=== PATIENT | female | born 1955 | race Caucasian/White ===

== ENCOUNTER 2017-04-05 08:47 | Day surgery (SDC) | payer OTHER ==
[~2017-04-05] VITALS: Ht 154.9 cm; Wt 77.6 kg
[2017-04-05 09:16] VITALS: BP 121/78
[2017-04-05 11:48] VITALS: BP 128/77
== END 2017-04-05 11:55 | disposition home or self-care (01) ==
LOC: GI 08:47 → DS 08:47 → OR 09:30 → DS 11:55 → OR 04-06 08:30
PROVIDERS: Internal Medicine Gastroenterology
PROC: 0DB68ZX Excision of Stomach, Via Natural or Artificial Opening Endoscopic, Diagnostic (ICD-10-PCS; principal; 2017-04-05 09:30)
DX: R10.13 Epigastric pain (principal); M32.9 Systemic lupus erythematosus, unspecified; E66.9 Obesity, unspecified; Z68.32 Body mass index [BMI] 32.0-32.9, adult; Z79.52 Long term (current) use of systemic steroids; Z85.3 Personal history of malignant neoplasm of breast; Z90.13 Acquired absence of bilateral breasts and nipples
CPT/HCPCS: 43235; J1200; J1610; J2250; J2310; J3010; J3490

== ENCOUNTER 2020-02-24 14:44 | Inpatient (IN) | payer OTHER ==
[~2020-02-24] VITALS: Ht 152.4 cm; Wt 66.9 kg
[2020-02-24] MEDS ORDERED: ZYLOPRIM300 MG PO (16:11)
[2020-02-24] MEDS ORDERED: ATORVASTATIN CA20 M1 PO (16:12)
[2020-02-24] MEDS ORDERED: CARVEDILOL6.25 M1 PO (16:12)
[2020-02-24] MEDS ORDERED: ARIMIDEX1 MG PO (16:12)
[2020-02-24] MEDS ORDERED: B-121000 MC2 PO (16:13)
[2020-02-24] MEDS ORDERED: D3 20002000 IU PO (16:13)
[2020-02-24] MEDS ORDERED: PLAQUENIL200 MG PO (16:14)
[2020-02-24] MEDS ORDERED: LASIX40 MG PO (16:14)
[2020-02-24] MEDS ORDERED: SLOW FE142 MG PO (16:14)
[2020-02-24] MEDS ORDERED: CALCIUM + D3 E1 EACH PO (16:15)
[2020-02-24] MEDS ORDERED: COZAAR100 MG PO (16:15)
[2020-02-24] MEDS ORDERED: ACID REDUCER20 MG PO (16:15)
[2020-02-24] MEDS ORDERED: DELTASONE20 MG PO (16:16)
[2020-02-24] MEDS ORDERED: ALDACTONE25 MG PO (16:16)
[2020-02-24] MEDS ORDERED: K-PHOS NEUTRAL1 TAB PO (16:16)
[2020-02-24 17:29] LABS: RED CELL DISTRIBUTION WIDTH 21.3 % (11.5-14.5)
[2020-02-24 17:30] LABS: BILIRUBIN TOTAL 0.4 mg/dL (0.20-1.00); C REACTIVE PROTEIN 0.8 mg/dL (<=0.9); CALCIUM 8.3 mg/dL (8.5-10.1); PLATELET COUNT 560 x10^3mcL (130-400); POTASSIUM SERUM 3.8 mmol/L (3.5-5.1)
[2020-02-24 17:34] LABS: ALBUMIN 1.9 g/dL (3.4-5.0); CREATININE SERUM 5.3 mg/dL (0.6-1.0); TOTAL PROTEIN, SERUM 5.8 g/dL (6.4-8.2)
[2020-02-24 17:52] LABS: BAND NEUTROPHIL 0 % (0-10); BASOPHIL 0 % (0-2); MONOCYTE 11 % (0-7); SEGMENTED NEUTROPHILS 74 % (37-75)
[2020-02-24 17:53] LABS: ovalocyte/elliptocyte 1+; rbc morphology (normal/abnorm) ABNORMAL (NORMAL); tear drop cell (dacryocyte) 1+
[2020-02-24 23:51] VITALS: BP 167/110
[2020-02-25] VITALS (7 sets, daily range): BP systolic 121–169; BP diastolic 61–119; Ht 152.4 cm; Wt 66.9 kg
[2020-02-25 07:07] LABS: PLATELET COUNT 423 x10^3mcL (130-400); RED CELL DISTRIBUTION WIDTH 21.3 % (11.5-14.5)
[2020-02-25 07:36] LABS: BILIRUBIN TOTAL 0.28 mg/dL (0.20-1.00); CALCIUM 8.4 mg/dL (8.5-10.1); CARBON DIOXIDE 27.5 mmol/L (21-32)
[2020-02-25 07:42] LABS: ALBUMIN 1.7 g/dL (3.4-5.0); CREATININE SERUM 4.2 mg/dL (0.6-1.0); TOTAL PROTEIN, SERUM 5.6 g/dL (6.4-8.2)
[2020-02-25 13:10] LABS: BAND NEUTROPHIL 1 % (0-10); MONOCYTE 10 % (0-7); SEGMENTED NEUTROPHILS 80 % (37-75)
[2020-02-25 13:11] LABS: ovalocyte/elliptocyte 1+; rbc morphology (normal/abnorm) ABNORMAL (NORMAL)
[2020-02-26 01:22] VITALS: BP 132/84
[2020-02-26 06:26] VITALS: BP 132/85
[2020-02-26 08:20] VITALS: BP 125/89
[2020-02-26 10:37] LABS: PLATELET COUNT 401 x10^3mcL (130-400); RED CELL DISTRIBUTION WIDTH 21.1 % (11.5-14.5)
[2020-02-26 10:51] LABS: CALCIUM 8.1 mg/dL (8.5-10.1); CARBON DIOXIDE 25.9 mmol/L (21-32); MAGNESIUM 1.9 mg/dL (1.8-2.4); POTASSIUM SERUM 4.4 mmol/L (3.5-5.1)
[2020-02-26 10:58] LABS: CREATININE SERUM 5.8 mg/dL (0.6-1.0)
[2020-02-26 11:19] VITALS: BP 111/47
[2020-02-26 11:28] LABS: BAND NEUTROPHIL 0 % (0-10); MONOCYTE 11 % (0-7); SEGMENTED NEUTROPHILS 81 % (37-75); rbc morphology (normal/abnorm) ABNORMAL (NORMAL)
[2020-02-26 18:17] VITALS: BP 148/93
[2020-02-26 21:36] VITALS: BP 134/88
[2020-02-27 05:30] VITALS: BP 139/91
[2020-02-27 06:41] LABS: MAGNESIUM 1.7 mg/dL (1.8-2.4); POTASSIUM SERUM 3.9 mmol/L (3.5-5.1)
[2020-02-27 07:37] LABS: PLATELET COUNT 339 x10^3mcL (130-400)
[2020-02-27 07:38] LABS: RED CELL DISTRIBUTION WIDTH 21.1 % (11.5-14.5)
[2020-02-27 08:20] VITALS: BP 160/105
[2020-02-27 12:34] VITALS: BP 124/93
[2020-02-27 12:59] LABS: MONOCYTE 10 % (0-7); SEGMENTED NEUTROPHILS 82 % (37-75); rbc morphology (normal/abnorm) ABNORMAL (NORMAL)
[2020-02-27 13:00] LABS: PLATELET MORPHOLOGY PLATELETS NORMAL; burr cell (echinocyte) 1+; ovalocyte/elliptocyte 1+; tear drop cell (dacryocyte) 1+
[2020-02-27 17:45] VITALS: BP 152/96
[2020-02-27 19:20] VITALS: BP 164/104
[2020-02-27 23:18] VITALS: BP 155/100
[2020-02-28 01:37] VITALS: BP 148/92
[2020-02-28 05:06] VITALS: BP 152/96
[2020-02-28 06:22] LABS: CALCIUM 8.3 mg/dL (8.5-10.1); CARBON DIOXIDE 26.2 mmol/L (21-32); MAGNESIUM 2.3 mg/dL (1.8-2.4); POTASSIUM SERUM 4.5 mmol/L (3.5-5.1)
[2020-02-28 06:26] LABS: CREATININE SERUM 6.2 mg/dL (0.6-1.0)
[2020-02-28 06:37] LABS: PLATELET COUNT 375 x10^3mcL (130-400)
[2020-02-28 06:47] LABS: RED CELL DISTRIBUTION WIDTH 19.6 % (11.5-14.5)
[2020-02-28 07:40] VITALS: BP 155/101
[2020-02-28 11:43] LABS: BAND NEUTROPHIL 0 % (0-10); BASOPHIL 0 % (0-2); MONOCYTE 19 % (0-7); SEGMENTED NEUTROPHILS 76 % (37-75); rbc morphology (normal/abnorm) ABNORMAL (NORMAL)
[2020-02-28 11:45] LABS: PLATELET MORPHOLOGY PLATELETS DECREASED; schistocyte (helmet cell) 1+
[2020-02-28 12:17] VITALS: BP 146/96
[2020-02-28 17:00] VITALS: BP 152/93
[2020-02-28 20:00] VITALS: BP 132/85
[2020-02-29 05:00] VITALS: BP 126/75
[2020-02-29 07:11] LABS: BASOPHIL % 0.2 % (0-2); PLATELET COUNT 315 x10^3mcL (130-400)
[2020-02-29 07:25] LABS: CALCIUM 8.1 mg/dL (8.5-10.1); CARBON DIOXIDE 29.7 mmol/L (21-32); MAGNESIUM 1.9 mg/dL (1.8-2.4); POTASSIUM SERUM 3.7 mmol/L (3.5-5.1)
[2020-02-29 07:36] LABS: CREATININE SERUM 4.7 mg/dL (0.6-1.0)
[2020-02-29 07:40] LABS: RED CELL DISTRIBUTION WIDTH 19.9 % (11.5-14.5)
[2020-02-29 08:09] VITALS: BP 132/80
[2020-02-29 12:04] VITALS: BP 124/88
[2020-02-29 16:47] VITALS: BP 124/88
== END 2020-02-29 17:15 | disposition home or self-care (01) | DRG 133 ==
LOC: ED 14:44 → IC 18:12 → DU 18:12 → IC 23:13 → DU 02-25 16:52
PROVIDERS: Emergency Medicine; Internal Medicine Pulmonary Disease; ADMIT Internal Medicine Pulmonary Disease
PROC: 5A1D70Z Performance of Urinary Filtration, Intermittent, Less than 6 Hours Per Day (ICD-10-PCS; principal; 2020-02-25)
PROC: 5A1D70Z Performance of Urinary Filtration, Intermittent, Less than 6 Hours Per Day (ICD-10-PCS; 2020-02-26)
PROC: 5A1D70Z Performance of Urinary Filtration, Intermittent, Less than 6 Hours Per Day (ICD-10-PCS; 2020-02-28)
PROC: 5A1D70Z Performance of Urinary Filtration, Intermittent, Less than 6 Hours Per Day (ICD-10-PCS; 2020-02-29)
DX: J96.21 Acute and chronic respiratory failure with hypoxia (principal); I13.2 Hypertensive heart and chronic kidney disease with heart failure and with stage 5 chronic kidney disease, or end stage renal disease; J18.0 Bronchopneumonia, unspecified organism; M32.9 Systemic lupus erythematosus, unspecified; E11.22 Type 2 diabetes mellitus with diabetic chronic kidney disease; I43 Cardiomyopathy in diseases classified elsewhere; N18.6 End stage renal disease; J44.9 Chronic obstructive pulmonary disease, unspecified; Z60.2 Problems related to living alone; K21.9 Gastro-esophageal reflux disease without esophagitis; I25.10 Atherosclerotic heart disease of native coronary artery without angina pectoris; E78.5 Hyperlipidemia, unspecified; Z20.828 Contact with and (suspected) exposure to other viral communicable diseases; I50.43 Acute on chronic combined systolic (congestive) and diastolic (congestive) heart failure; D63.8 Anemia in other chronic diseases classified elsewhere; Z99.2 Dependence on renal dialysis; Z79.899 Other long term (current) drug therapy
CPT/HCPCS: 36600; 83880; 85378; 87046; 87046-59; 87804; 94150; 97116-GP; 97530-GP; C9113; G0378; J0456; J0696; J1644; J1940; J2405; J3475; J3490; J3535; J7030; J7050; Q0092; Q9967

== ENCOUNTER 2020-04-25 22:52 | Inpatient (IN) | payer OTHER ==
[~2020-04-25] VITALS: Ht 160 cm; Wt 60.8 kg
[2020-04-25 22:52] VITALS: Ht 160 cm; Wt 60.8 kg
[~2020-04-25 22:52] MED LIST: ACID REDUCER20 MG PO; ALDACTONE25 MG PO; ARIMIDEX1 MG PO; ATORVASTATIN CA20 M1 PO; B-121000 MC2 PO; CALCIUM + D3 E1 EACH PO; CARVEDILOL6.25 M1 PO; COZAAR100 MG PO; D3 20002000 IU PO; DELTASONE20 MG PO; K-PHOS NEUTRAL1 TAB PO; LASIX40 MG PO; PLAQUENIL200 MG PO; SLOW FE142 MG PO; ZYLOPRIM300 MG PO
--- NOTE | 2020-04-25 22:52 | NUR ---
64 YEAR OLD FEMALE BIBA FOR FULL ARREST. PT WAS AT HOME WHEN PT WAS FOUND UNRESPONSIVE BY DAUGTHER, INITIATED CPR. LAST SEEN NORMAL 1.5 CARBIDE DIE MAKER. PER EMS, PT HAD A PACEMAKER PLACED 1 WEEK AGO, LAST DIALYSIS WAS TODAY. ON ARRIVAL, PT HAD OPA IN PLACED AND BEING BAGGED. PT WAS IN [place] UPON ARRIVAL, CPR CONTINUED. DR GODINEZ AT BEDSIDE FOR INTUBATION. DR GODINEZ REMOVED OPA AND PTS TOP DENTURES. DENTURES PLACED IN LABELED CUP.
--- NOTE | 2020-04-25 23:00 | NUR ---
EKG IN PROGRESS
--- NOTE | 2020-04-25 23:14 | NUR ---
DR GODINEZ AT BEDSIDE PLACING CENTRAL LINE
--- NOTE | 2020-04-25 23:26 | NUR ---
CENTRAL LINE UNSUCCESSFUL. BLEEDING CONTROLLED.
[2020-04-25 23:42] VITALS: BP 117/69
[2020-04-26] VITALS (15 sets, daily range): BP systolic 77–168; BP diastolic 50–87
--- NOTE | 2020-04-26 00:13 | NUR ---
PT INTUBATED AND DOES NOT APPEAR UNCOMFORTABLE. NO BITING OF ET TUBE NOTED. PT ON FULL CM AND PULSE OX. CONTINUING TO MONITOR.
[2020-04-26 00:15] LABS: BASOPHIL % 0.5 % (0-2)
[2020-04-26 00:16] LABS: CALCIUM 7.7 mg/dL (8.5-10.1); CARBON DIOXIDE 27.7 mmol/L (21-32); CREATININE SERUM 3.1 mg/dL (0.6-1.0); POTASSIUM SERUM 3.6 mmol/L (3.5-5.1)
[2020-04-26 00:20] LABS: PLATELET COUNT 77 x10^3mcL (130-400); RED CELL DISTRIBUTION WIDTH 25.9 % (11.5-14.5)
[2020-04-26 00:23] LABS: BILIRUBIN TOTAL 0.6 mg/dL (0.20-1.00)
[2020-04-26 00:24] LABS: ALBUMIN 1.8 g/dL (3.4-5.0); TOTAL PROTEIN, SERUM 5.2 g/dL (6.4-8.2)
--- NOTE | 2020-04-26 00:24 | NUR ---
NOTIFIED DR. GODINEZ OF CRITICAL LAB VALUE
[2020-04-26 00:39] LABS: burr cell (echinocyte) 1+
[2020-04-26 00:40] LABS: ovalocyte/elliptocyte 1+
[2020-04-26 00:41] LABS: rbc morphology (normal/abnorm) ABNORMAL (NORMAL)
--- NOTE | 2020-04-26 01:03 | NUR ---
PT APPEARS COMFORTABLE IN [facility]. NO BITING OF ET TUBE. PT CONTINUES TO HAVE A GCS OF 3. PUPILS FIXED AND PINPOINT. WILL CONTINUE TO ASSESS
--- NOTE | 2020-04-26 01:28 | NUR ---
SPOKE WITH PTS ERI ALVAREZ AND KENDRA. I PROVIDED AN UPDATE ON THE PATIENTS STATUS.DAUGHTERS INFORMED ME THAT PT HAS HAD MANY DOCTOR VISITS LATELY D/T A LOW PLATELET AND LOW HEMOGLOBIN COUNT. THIS PAST WEEK SHE DIAGNOSED WITH A BONE MARROW DYSFUNCTION AND HAD A BONE BIOPSY WITH HEMATOLOGY STUDY DONE. 2 WEEKS AGO SHE WAS SEEN AT [facility] FOR ANEMIA AND RECIEVED 2 UNITS OF BLOOD. THEY ALSO UPDATED ME WITH A HISTORY OF LUPUS. SHE HAS BEEN TESTED MANY TIMES FOR COVID WITH NEGATIVE RESULTS. TODAY, PER FLETCHER, PT WAS "NOT FEELING RIGHT" AND "FEELING LIKE SHE WAS GOING TO BLACK OUT." FLETCHER TOLD PT TO GO TO BED. AFTER AN HOUR, FLETCHER HEARD PT GRUNTING AND SHE WENT TO CHECK ON PT, AND FOUND HER NOT BREATHING AND SHE STARTED COMPRESSIONS. ERI LEFT PHONE NUMBERS: ANTONIO: [phone] / KENDRA: [phone].
--- NOTE | 2020-04-26 01:30 | NUR ---
REPORT GIVEN TO GUERA MARTINEZ TO ASSUME CARE FOR PT.
--- NOTE | 2020-04-26 01:39 | NUR ---
RT TITRATED FIO2 TO 50%. PT TOLERATED TRANSFER TO CT. NO S/S OF DISTRESS. RESP E/U. PROVIDED PT BLANKET FOR COMFORT.
--- NOTE | 2020-04-26 02:02 | NUR ---
PT MEDICATED PER ORDER. SEE EMAR FOR DETAILS
--- NOTE | 2020-04-26 02:10 | NUR ---
TITRATED PROPOFOL TO 20MCG/MIN FOR PT COMFORT
--- NOTE | 2020-04-26 02:20 | NUR ---
INCREASED PROPOFOL TO 30MCG/MIN TO INCREASE PT COMFORT. PT LOWER JAW MOVING, PT APPEARS TO JOLT LESS FREQUENTLY THAN PRIOR TO THE START OF PROPOFOL. PT APPEARS TO BE MORE RELAXED. VSS. WILL CONTINUE TO MONITOR.
--- NOTE | 2020-04-26 02:30 | NUR ---
INCREASED PROPOFOL TO 40MCG/MIN FOR PT COMFORT. PT IS NO LONGER JOLTING. PT HAS LESS MOVEMENT TO THE LOWER JAW. PT APPEARS TO BE RESTING COMFORTABLY. WILL CONTINUE TO MONITOR.
--- NOTE | 2020-04-26 02:59 | NUR ---
PT HEART RATE INCREASED TO 168, DR GODINEZ CAME TO BEDSIDE. PT SHOCKED AT 200J. POST SHOCK PT IN NSR. 100MG OF LIDOCAINE GIVEN TO PT.
--- NOTE | 2020-04-26 03:07 | NUR ---
PER DR. GODINEZ START LIDOCAINE AT 1MG/MIN
--- NOTE | 2020-04-26 03:34 | NUR ---
SPOKE WITH DR. ALVAREZ [facility] TO STOP LIDOCAINE DRIP. GIVE LOADING DOSE OF AMIODARONE 150MG.
--- NOTE | 2020-04-26 03:39 | NUR ---
LOADING DOSE OF AMNODRIONE, GUERA JACOBS AT BEDSIDE TO VERIFY DOSEAGE PER PROTOCOL.
--- NOTE | 2020-04-26 03:52 | NUR ---
ATTEMPTED TO CALL [facility] FOR AMIODARONE DRIP PROTOCOL, NO ANSWER. SPOKE WITH GLADYS MONTANEZ, TO CALL ICU FOR AMIODARONE PROTOCOL. ICU ORION ASSISTED WITH AMIODARONE BOLUS INFORMATION, UNABLE TO RECALL AMIODARONE DRIP PROTOCOL. CALLED GLADYS MONTANEZ BACK, WILL CALL PHARMACY AND HAVE THEM CONTACT ED.
--- NOTE | 2020-04-26 04:00 | NUR ---
SPOKE WITH ALO BERGMAN REGARDING AMIODARONE MAINTENANCE DRIP PROTOCOL. PER ALO BERGMAN. TO MIX 450MG IN D5W 500MLS TO RUN AT 1MG/MIN X6 HOURS. THEN TO DECREASE TO 0.5MG/MIN [id number]. CAN BE REACHED AT [phone].
--- NOTE | 2020-04-26 04:07 | NUR ---
PER PHARMACY PROTOCOL, PT STARTED AMIODARONE AT 84.84ML/HR TO INFUSE OVER 6 HOURS. ESTELLA LYNNE AT BEDSIDE TO VERIFY DOSE.
--- NOTE | 2020-04-26 05:19 | NUR ---
SPOKE WITH BLOOD BANK [facility], STATES "ANTIBODY" WAS DETECTED IN BLOOD AND BLOOD WILL NEED TO BE SENT OUT AND "THE BLOOD WILL BE LATE". UNKNOWN ETA. CAN BE REACHED AT [phone]. PRIMARY RN JUAN MADE AWARE.
--- NOTE | 2020-04-26 05:20 | NUR ---
CONTACTED [facility] TO PAGE CHIEF ESTIMATOR MD FOR PT BLOOD PRESSURE.
--- NOTE | 2020-04-26 05:35 | NUR ---
TITRATED PROPOFOL DOWN TO 20MCG/MIN TO ATTEMPT TO INCREASE PT BLOOD PRESSURE. PT HAS NO SIGNS OF FIGHTING THE TUBE AT THIS TIME. PT PLACED IN [place] TO ATTEMPT TO INCREASE BLOOD PRESSURE
--- NOTE | 2020-04-26 05:41 | NUR ---
PT CONTINUES TO HAS SHORT RUNS OF VTACH AND VFIB ON THE MONITOR. WILL INFORM MD WHEN CALLED. PT RESTING IN POSITION OF COMFORT ON THE GURNEY. NO S/S OF DISTRESS. WILL CONTINUE TO MONITOR.
--- NOTE | 2020-04-26 05:42 | NUR ---
PT HEART RATE 183 LESS THAN 10 SECONDS
--- NOTE | 2020-04-26 05:53 | NUR ---
ATTEMPTED TO CALL LAB ABOUT PT BLOOD, NO ANSWER.
--- NOTE | 2020-04-26 06:22 | NUR ---
PT MEDICATED PER ORDER. SEE EMAR FOR DETAILS.
--- NOTE | 2020-04-26 06:50 | NUR ---
PT IN VFIB, PULSES PRESENT, PT SHOCKED AT 200J.
--- NOTE | 2020-04-26 07:02 | NUR ---
DR. GALDAMEZ AT BEDSIDE. PT IN VFIB PT SHOCKED AT 200J. PT CONVERTED. WILL CONTINUE TO MONITOR.
--- NOTE | 2020-04-26 07:08 | NUR ---
SPOKE WITH DR. VIRAMONTES, INFORMED HIM OF PT RECENT SHOCKS. INFORM HIM THAT THE BLOOD HAD ANTIBODIES, NO EXACT ETA FOR BLOOD AT THIS TIME.
--- NOTE | 2020-04-26 07:21 | NUR ---
ATTEMPTED TO CALL REPORT TO ICU, PER ICU CHARGE NURSE PT IS TOO UNSTABLE TO GO TO ICU. CHARGE NURSE TANIA MADE AWARE.
--- NOTE | 2020-04-26 07:32 | NUR ---
REPORT GIVEN TO CAITLIN RN
--- NOTE | 2020-04-26 08:08 | NUR ---
TRANSPORTED PATIENT TO ICU VIA ACLS PROTOCOL ACCOMPANIED BY RN, RT AND TECH.
--- NOTE | 2020-04-26 08:18 | NUR ---
DR ALBRIGHT PAGED AT THIS TIME. AWAITING CALL BACK FOR NEW ORDERS
--- NOTE | 2020-04-26 08:19 | NUR ---
NOTED HEMOGLBIN 6.8 WITH 2 UNITS PRBC ON ORDER. BLOOD NOT READY AT THIS TIME. WILL CONT TO MONITOR
[2020-04-26 09:03] LABS: MAGNESIUM 1.9 mg/dL (1.8-2.4)
--- NOTE | 2020-04-26 09:05 | NUR ---
CALLED DR ALBRIGHT REGARDING PTS CURRNT POC. UPDATED DR ALBRIGHT ON PTS CURRENT VITALS, RHYTHM, LABS, MEDS AND STATUS. QUESTIONS ANSWERED. PER DR ALBRIGHT, MOVE AMIODARONE 1MG/MIN TO 0.5MG/MIN AT THIS TIME. START PT ON DOPAMINE GTT TO MAINTAIN HR ABOVE 55 AND SBP ABOVE 100. ORDER ABG AND ECHO STAT. IF HR BELOW 40, GIVE ATROPINE 0.5MG IVP. ONCE MAGNESIUM LAB RETURNS, REPLACE MAGNESIUM LESS THEN 2.0 WITH MAGNESIUM 1GM. GIVE POTASSIUM 20MEQ IV AT THIS TIME. INTEROGATE PACEMAKER. PER DR ALBRIGHT, STANDING ORDERS FOR PT IF PT SUSTAINS VTACH INITIAL SHOCK @ 100J. IF NOT CONVERTED AND PT REMAINS IN VTACH SHOCK WITH 200J. PRIMARY RN AND RT MADE AWARE OF NEW ORDERS. ORDERS TO BE CARRIED OUT AT THIS TIME
--- NOTE | 2020-04-26 09:25 | NUR ---
AMIODARONE TITRATED TO 0.5MG/MIN PER MD VALENTINO, HR=75, SOP2 95%, QO=959/49, TEMP 98.2 RR 10, WILL CONTINUE TO MONITOR
--- NOTE | 2020-04-26 09:46 | NUR ---
DOPAMINE INITIATED @ 5MCG/KG/MINHR=61, SPO2 100%, 10 RR, 98.1 f, BP 77/50 (60) WILL CONTINUE TO MONITOR
--- NOTE | 2020-04-26 09:54 | NUR ---
CALLED BLOOD BANK REGARDING 2 UNITS PRBC. PER BLOOD BANK, PT POSITIVE FOR ANTIBODIES SO BLOOD HAS BEEN SENT TO [facility]. INQUIRED ABOUT POSSIBLE ETA, NO CURRENT ETA AT THIS TIME. PER TERESITA FROM BLOOD BANK, THEY WILL NOTIFY US WHEN BLOOD HAS ARRIVED. NOTIFIED PRIMARY RN CAITLIN
--- NOTE | 2020-04-26 10:39 | NUR ---
ECHO COMPLETE AT THIS TIME
--- NOTE | 2020-04-26 10:44 | NUR ---
ECHOCARDIOGRAM COMEPLTED.
--- NOTE | 2020-04-26 10:50 | NUR ---
PT DAUGHTER KENDRA CALLED IN [facility] PACEMAKER INFORMATION, UPDATED ON PATIENTS STATUS, PER DAUGHTER WILL CALL BACK WITH INFORMATION WITHIN THE HOUR
--- NOTE | 2020-04-26 11:35 | NUR ---
MANAV-SYNEPHRINE TRITRATED TO 50 MCG/MIN DT=683/86 (108) HR=75, AND TURNED OFF AT 1130 FOR BP= 1566/86(108) DOPAMINE TITRATED TO 4MCG/KG/MIN, WILL CONTINUE TO MONITOR. FIO2 TITRATED BY RT [place] TO 30%, SPO2 100%.
--- NOTE | 2020-04-26 11:40 | NUR ---
PTS DAUGHTER ANTONIO TOLD NURSE MEDICATIONS PATIENT IS CURRENTLY ON, PACEMAKER INFORMATICS READ TO RN: COMPANY [email or web address], IMPLANT DATE 03/28/2020, MODEL: [id number], POSITION GENERATOR-ICD, POSITION: RV-RT VENTRICAL, CONTACT MD DARDEN , [address], [address], [place], [place], [facility] PER DAUGHTER PT HAD DOUBLE MASECTOMY 6 YEARS AGO & BREAST IMPLANTS PLACE, HX OF BREAST CANCER & STARTED DIALYSIS 5 MONTHS AGO, PER DAUGHTER PT WAS ABLE TO MAKE URINE
[2020-04-26 11:44] LABS: CALCIUM 8.2 mg/dL (8.5-10.1); CARBON DIOXIDE 24.2 mmol/L (21-32); CREATININE SERUM 3.9 mg/dL (0.6-1.0); MAGNESIUM 1.8 mg/dL (1.8-2.4); POTASSIUM SERUM 3.8 mmol/L (3.5-5.1)
--- NOTE | 2020-04-26 11:55 | NUR ---
MD ALBRIGHT AT BEDSIDE, UPDATED ON PATIETNS STATUS, GIVEN INFORMATION ON CURRENT MEDS PER ANTONIO (DAUGHTER) & PACEMAKER INFORMATION, PER MD CONTINUE W/ THERAPIES, RESTRAINTS ORDER OBTAINED, CHANGE MAINTENANCE FLUIDS TO 40ML/HR. WILL CONTINUE TO MONITOR
--- NOTE | 2020-04-26 12:15 | NUR ---
PROPOFOL TITRATED TO 15MCG/KG/HR @ DOPAMINE TITRATED TO 3MCG/KG/HR YW=029/65 (94) HR =64, WILL CONTINUE TO MONITOR
--- NOTE | 2020-04-26 12:24 | NUR ---
LAB LEVEL CALLED: TROPONIN 0.978, MD ALBRIGHT AT BEDSIDE, UPDATED MD ON LATEST LEVEL, NO NEW ORDERS AT THIS TIME
--- NOTE | 2020-04-26 13:16 | NUR ---
DOPAMINE TITRATED TO 2MCG/KG/HR, UE=865/81 HR=62, SPO2 100%, RR 17
--- NOTE | 2020-04-26 14:27 | NUR ---
@ 1427, PT IN V-TAC APPROX 15-20 SEC, PER MD ALBRIGHT SHOCK PT @ 100J, PT SCHOCKED @ 100j, EFFECTIVE, PT IN NSR HR=70 BPM, RESP 16, SPO2 100% BP= 164/87 HR-190->200S PRE SHOCK, POST SHOCK BP 164/87, SPO2 100%, RR, 16 HR=70 BPM PROP TITRATED TO 20MCG/KG/MIN
--- NOTE | 2020-04-26 15:30 | NUR ---
FAMILY AT BEDSIDE, SHANDA (DAUGHTERS), UPDATED ON PATIENTS STATUS
--- NOTE | 2020-04-26 16:09 | NUR ---
@1530 PT WENT INTO VTAC, APPROX 10-20SEC, NT=[id number], KY=310/91, SPO2 100%, RR=22, PT SHOCKED @ 100J PER MD ALBRIGHT ORDER, EFFECTIVE, PT WENT BACK TO NSR, HR=70, SPO2 100% RR 16, JD=879/71. MD ALBRIGHT CONTACTED, AWARE OF INTERVENTIONS, PER START METROPOLOL 12.5 MG Q8HR VIA OGT HOLD OF SBP<100 & HR<55, CONT W/ TITRATING DOPAMINE
--- NOTE | 2020-04-26 16:41 | NUR ---
MD BRANHAM AT BEDSIDE, UPDATED ON PATIENTS STATUS, PER MD MAY REQUIRE HD TOMORROW, NO NEW ORDERS AT THIS TIME, RECOMMENDS DOUBLE DOSING MEDICATIONS
--- NOTE | 2020-04-26 17:16 | NUR ---
PT SHOCKED AT 1630, 1644, 1653, 1658, 1704,1709, FOR SUSTAINED VTAC W/ 100J PER MD ALBRIGHT ORDER. AWAITING NEW ORDERS FROM MD ALBRIGHT
--- NOTE | 2020-04-26 17:28 | NUR ---
CALLED DR ALBRIGHT TO UPDATE ON PTS CURRENT STATUS. NOTIFIED THAT PT HAS BEEN SHOCKED SIX TIMES WITHIN THE LAST THIRTY MINUTES DUE TO SUSTAINED VTACH. NEW ORDERS OBTAINED BY DR ALBRIGHT. ALSO NOTIFIED THAT FAMILY HAD BEEN UPDATED WELL OF PTS CURRENT STATUS AND FAMILY WISHES TO KEEP HER FULL CODE AT THIS TIME. ORDERS CARRIED OUT AT THIS TIME
--- NOTE | 2020-04-26 17:38 | NUR ---
RC'D CALL FROM JOE, PTS DAUGHTER. UNABLE TO DISPERSE INFORMATION D/T NOT ON THE FACE SHEET. JOE TO CALL SISTERS KENDRA AND ANTONIO FOR UPDATE AND TO ADD TO FACE SHEET. AWAITING CALL BACK AT THIS TIME
--- NOTE | 2020-04-26 18:15 | NUR ---
RC'D CALL FROM ANTONIO, PTS DAUGHTER. PER ANTONIO JOE IS AN ESTRANGED SISTER AND SHE IS CONSENTING TO GIVE PT UPDATES TO HER BUT JOE IS NOT ALLOWED TO MAKE ANY MEDICAL DECISIONS. PRIMARY RN NOTIFIED AND MADE AWARE. WILL ENDORSE TO MANAGER CARDIAC CATH AUTOMATION LEAD
--- NOTE | 2020-04-26 18:20 | NUR ---
RC'D CALL FROM DR ALBRIGHT. UPDATED ON PTS CURRENT STATUS. QUESTIONS ANSWERED. DR ALBRIGHT MADE AWARE OF THE PTS RECENT SUSTAINED RUNS OF VTACH WHICH RESULTED IN BEING SHOCKED WITH 100J PER MD STANDING ORDER, PT CONVERTED BACK TO NSR/SB AFTER INITIAL SHOCK. PER DR ALBRIGHT, AFTER INITIATING PROCAINAMIDE LOADING DOSE OF 500MG TO INFUSE OVER 20 MINUTES, IF SBP BELOW 100 HOLD THE BOLUS, THEN CONTINUE TO INITIATE THE MAINTENCE OF PROCAINAMIDE 1MG/MIN. IF QRS COMPLEX WIDER THEN 50% THEN HOLD BOLUS. FEEDER DRIVER SONYA, PRIMARY RN CAITLIN NOTIFIED AND MADE AWARE. WILL ENDORSE TO ONCOMING NURSES
--- NOTE | 2020-04-26 19:00 | NUR ---
PT SHOCKED w/ 100j @ 1728, 1853, 1809, 1818, 1823, 1832, 1837, 1856, & 1859, ALL EFFECTIVE W/ RYTHEM CONVERTING TO NSR-SINUS MILAN, PT DID NOT DESATURATE MD AWARE, PT VS NOW ARE 155/81, FIO2 100%, 98.6, HR 66.
--- NOTE | 2020-04-26 19:30 | NUR ---
RECEIVED PT FROM A.M SHIFT DURING REPORT CHARGE NURSE STATED THAT THEY SHOCK THE PT 20+ TIMES AND UNSUCESSFUL TO GETTING THE INTERROGATING MACHINE TO WORK FOR HER PACEMAKER DUE TO THE PHONE LINE NOT WORKING AT THIS TIME. ON OUR SHIFT WE DID A ROOM CHANGE FROM ICU 8 TO ICU 7 WHERE THE PHONE LINE WAS WORKING BUT WE DID NOT HAVE A DUAL PHONE PORT FOR THE MACHINE AT THIS TIME. [employer] WAS CALLED IMMEDIATELY AT THIS TIME TO HAVE A REP COME TO THE HOSPITAL TO INTERROGATE THE PACEMAKER AT THIS TIME. WILL CONTINUE TO MONITOR.
--- NOTE | 2020-04-26 19:41 | NUR ---
REPORT GIVEN TO MATA HOWARD, ENDORCED RECONCIDED HOME MEDICATION, AWAITING BLOOD TRANFUSION, UPDATED ON FAMILY SITUATION
--- NOTE | 2020-04-26 20:35 | NUR ---
SPOKE TO WALE FROM [email or web address]( [employer] TO INTERROGATE THE DEVICE. WALE SAID OUR REP WILL BE DALILA PHILIPPE AND HE WILL CALL WITH AN ETA AND CHECK OUR DEVICE URGENTLY FOR THE PT. WILL CONTINUE TO MONITOR, AWAITING REP ARRIVAL AT THIS TIME.
--- NOTE | 2020-04-26 20:38 | NUR ---
PHILOMENA SIMPSON FROM [employer] CALL BACK AND SHE STATED SHE IS REP INSOLE COVERER FOR [facility] AND SHE WILL CHECK TO SEE WHAT KIND OF DEVICE THE PT HAS AND WILL CALL US RIGHT BACK. AWAITING CALL BACK FROM PHILOMENA AT THIS TIME.
--- NOTE | 2020-04-26 21:09 | NUR ---
MATTA REP MO HERE TO INTERROGATE THE PACEMAKER AT THIS TIME. WILL CONTINUE TO MONITOR.
--- NOTE | 2020-04-26 21:16 | NUR ---
SPOKE TO ANTONIO DAUGHTER AT THIS TIME. ANTONIO STATED THAT SHE WANTS TO TALK TO THE DOCTOR REGARDING CODE STATUS. SHE STATED THAT SHE DON'T WANT HER MOM TO BE SHOCK ANYMORE, I EXPLAINED TO HER THAT THE PACEMAKER REP IS HERE TO FIX THE PACEMAKER, SO HOPEFULLY NO MORE DEFIBILLATION IS REQUIRED. SHE STATED " OK LET'S KEEP HER FULL CODE UNTIL SHE SPEAKS TO THE DOCTOR TOMORROW." WILL CONTNIUE TO MONITOR.
--- NOTE | 2020-04-26 21:52 | NUR ---
PAGED DR. ALVAREZ AT THIS TIME, AWAITING (STATE GAME PROTECTOR) TO CALL BACK. WILL CONTINUE TO MONITOR.
--- NOTE | 2020-04-26 21:54 | NUR ---
SPOKE TO DR. DOVE AND UPDATED HIM ON THE PT STATUS AT THIS TIME. MADE AWARE THAT ALL DRIPS ARE OFF AT THIS TIME AND PACEMAKER WAS INTERROGATED BY SEAN ( [employer] REP) AT THIS TIME. NO NEW ORDERS AT THIS TIME. DR. DOVE SAID " GREAT, EVERYTHING SOUNDS GOOD." WILL CONTINUE TO MONITOR.
--- NOTE | 2020-04-26 22:49 | NUR ---
TELEPHONED DAUGHTER ANTONIO ABOUT PT'S STATUS AND CODE BLUE BEING INITIATED. PT'S DAUGHTER STATES THEY WILL BE ARRIVING AT HOSPITAL IN 5-10 MINUTES.
--- NOTE | 2020-04-26 23:13 | NUR ---
FAMILY MEMBERS AT THE BEDSIDE AT THIS TIME. FAMILY MEMBERS DECIDED TO PLACE THE PT ON DNR/COMFORT CARE AT THIS TIME. DR. ALVAREZ PAGED AWAITING CALL BACK AT THIS TIME.
--- NOTE | 2020-04-26 23:19 | NUR ---
SPOKE TO DR. MILLIGAN WITH NEW ORDERS. NEW ORDERS TO D/C ALL BLOOD PRESSURE MEDS . START MORPHINE DRIP 2MG AND INCREASE 2MG Q 15MINS TO DECREASED AGONAL BREATHING. NEW ORDERS TO EXTUBATE PT NOTED AND CARRIED OUT. FAMILY MEMBERS AT THE BEDSIDE.
[2020-04-27] VITALS: BP 82/45
--- NOTE | 2020-04-27 00:04 | NUR ---
PT EXTUBATED BY RT AT THIS TIME. WILL CONTINUE TO MONITOR.
--- NOTE | 2020-04-27 01:54 | NUR ---
AT 0 PACEMAKER E [employer] DEV[employer] WAS CALLED TO COME TO INTERROGATE [employer]ICD AND CHANGE SETTINGS. PACEMAKER SETTINGS CHANGED PER TEACHING DIETITIAN REQUEST. TEACHING DIETITIAN WAS NOTIFIED ABOUT SEVERAL RUNS OF VTACH THAT PT WAS HAVING. [employer] INTERROGATED. REPORT FILED IN CHART. @ 2250 a code blue was called due to loss of a pulse. pt resusitated. ROSC. 2 OF EPI WAS GIVEN. FAMILY WAS NOTIFIED AND TOLD TO COME TO HOSPITAL TO SEE PT. FAMILY ARRIVED AT 2330. DISCUSSED WITH FAMILY PT PROGNOSIS AND BASED ON POOR PROGNOSIS A DECISION FOR DNR WAS MADE BY FAMILY WELL COMFORT MEASURES WITH MORPHINE DRIP. FAMILY ALSO REQUESTED TO HAVE VENTILATOR TAKEN OFF. PT STARTED ON MORPHINE DRIP AT 2MG/HR AT 2333 AND INCREASED Q 15 MINUTES TO DECREASE AGONAL BREATHING AND RR.
--- NOTE | 2020-04-27 02:31 | NUR ---
Spoke to Dr. Akin mcclellan to transfer to med -surg pt is now comfort care. Pt awaiting bed for med-surg at this time. Will continue to monitor.
[2020-04-27 04:07] VITALS: BP 72/41
--- NOTE | 2020-04-27 05:11 | NUR ---
AT 2333 PLACED PT ON MORPHINE AT 2MG/HR AND TITRATING WITH AGONAL BREATHING AND RR Q15 MIN. 2350- CHANGED TO 4MG/HR DUE TO RR >25. 0005- 6MG/HR DUE TO RR>25 0020-6MG/HR RR AT 18 0200- 4MG/HR DUE TO RR 10 0500- 2MG/HR DUE TO RR 8
--- NOTE | 2020-04-27 05:40 | NUR ---
PT WAS RECIEVD FROM ICU VIA BED,AGONL BREATH,PUPILS FIXED AND NON REACTIVE,PT ON MORHINE DRIP ORDER FOR COMFORT MEASURES,PT HAS F/C TO GRAVITY WITH DARK GUTIERREZ URINE OUTPUT,RT CHEST QUINTTON CATH INTACT,KEPT CLEAN AND DRY TO TOUCH AND RESTING AT THIS TIME,
[2020-04-27 05:48] LABS: BASOPHIL % 0.3 % (0-2); PLATELET COUNT 156 x10^3mcL (130-400)
[2020-04-27 05:53] LABS: RED CELL DISTRIBUTION WIDTH 27.1 % (11.5-14.5)
--- NOTE | 2020-04-27 06:01 | NUR ---
AT 0540 TRANSFERRED PT UP TO 201. PT SENT WITH OXYGEN AT 2LNC. REPORT WAS GIVEN TO KENDRA LYNNE. PT SENT UP WITH MORPHINE DRIP. DROPLET PRECAUTIONS MAINTAINED. BELONGINGS ALSO SENT AND GIVEN TO KENDRA LYNNE.
--- NOTE | 2020-04-27 06:19 | NUR ---
PT TRANSFER TO THE FLOOR ON MORHINE DRIP AT 4 MG TO TITRATE THE DRIP.
[2020-04-27 06:21] VITALS: BP 35/46; BP 75/46
--- NOTE | 2020-04-27 06:48 | NUR ---
PT STILL ON THE MORHINE DRIP ORDER AND INFUSING AT 4MG/HR WHICH 8 CC/HR,CAN BE TITRATE ORDER,PT COMFORTABLY RESTING AT THIS TIME WILL CONTINUE TO MONITOR.
[2020-04-27 08:24] LABS: BILIRUBIN TOTAL 0.9 mg/dL (0.20-1.00); CALCIUM 7.9 mg/dL (8.5-10.1); CARBON DIOXIDE 18.8 mmol/L (21-32); POTASSIUM SERUM 4.6 mmol/L (3.5-5.1)
--- NOTE | 2020-04-27 08:30 | NUR ---
SEEN IN BED PAINFUL STIMULI RESPONSIVE, EYES SLUGGISH, PATIENT IS CURRENTLY DNR WITH PALLIATIVE CARE. ON O2 3LPM N/C O2SAT 98%, BP 87/48, HR 47, RR 14, TEMP 97.2. ON MORPHINE DRIPS AT 4MG/HR TO RFA IV SITE. JOSÉ CATH DRAINING TO GRAVITY GUTIERREZ IN COLOR. TUNNEL CATHETER FOR HD NOTED TO RIGHT CHEST WALL WITH DRSG SCDI. S/L TO LEFT JUGULA FLUSHED PATENT. EDEMA TO LEFT ARM, KEPT LUE ON PILLOW. PERICARE PROVIDED, TURNED AND REPOSITIONED, KEPT HOB ELEVATED AT 30DEG. ON CONTACT/DROPLET ISOLATION FOR PENDING COVID-19. SIDERAILS UP X2.
[2020-04-27 08:31] LABS: ALBUMIN 1.9 g/dL (3.4-5.0); TOTAL PROTEIN, SERUM 5.6 g/dL (6.4-8.2)
[2020-04-27 08:32] LABS: CREATININE SERUM 4.2 mg/dL (0.6-1.0)
--- NOTE | 2020-04-27 09:30 | NUR ---
RECEIVED CRITICAL FROM [facility], BLOOD CX-GRAM STAIN: GRAM - BACILLI. ATTENDING NURSE PROVIDED WITH RESULT TO F/U WITH ATTENDING.
[2020-04-27 09:39] VITALS: BP 87/48
--- NOTE | 2020-04-27 10:05 | NUR ---
PATIENT'S DAUGHTER KENDRA AT BEDSIDE, CONDITION UPDATED.
--- NOTE | 2020-04-27 16:27 | NUR ---
HR=48, REMAINS ON MORPHINE 4MG/HR, IV TO RFA INTACT AND PATENT.
--- NOTE | 2020-04-27 17:30 | NUR ---
UPDATED TO PATIENT'S DAUGHTER KENDRA VIA PHONE.
--- NOTE | 2020-04-27 18:28 | NUR ---
NO CHANGE IN CONDITION, REMAINS UNRESPONSIVE, PUPILS FIXED AND SLUGGISH, HR RANGE BETWEEN 46-49 THROUGHOUT SHIFT. MORPHINE DRIPS ONGOING AT 4MG/HR TO RFA IV SITE. JOSÉ CATH DRAINING OUT 50ML DARK GUTIERREZ URINE IN COLOR. KEPT HOB ELEVATED AT 30DEG, PERICARE PROVIDED.
[2020-04-27 21:08] VITALS: BP 79/44
--- NOTE | 2020-04-27 21:36 | NUR ---
LATE ENTRY: NON REPONSIVE TO ANY STIMULI. PUPILS FIXED, 1MM, ROUND, EQUAL. BREATHING EVEN AND UNLABORED ON 3LPM OF O2 VIA NC. LUNG SOUNDS DIMINISHED. ON MORPHINE DRIP AT 4MG/HR. INFUSING WELL TO RIGHT FOREARM IV SITE. SALINE LOCK TO LEFT SIDE OF NECK, DRESSING CDI. DIALYSIS CATHETER TO RIGHT CHEST WALL, DRESSING CDI. CLOSED WOUND, WITH SURROUNDING SKIN RED NOTED TO LEFT CHEST WALL. CALL LIGHT WITHIN EASY REACH.
--- NOTE | 2020-04-28 02:13 | NUR ---
NO EYE OPENING. NO RESPONSE TO PAIN STIMULI. PUPILS REMAIN 1MM, EQUAL, NON REACTIVE. MORPHINE DRIP AT 4MG/HR (8ML/HR). IV SITE FREE FROM REDNESS OR SWELLING. BREATHING EVEN AND UNLABORED.
--- NOTE | 2020-04-28 06:04 | NUR ---
NO CHANGES TO NEURO CONDITION. NON RESPONSIVE. BREATHING UNLABORED. ON MORPHINE DRIP AT 4MG/HR
--- NOTE | 2020-04-28 06:16 | NUR ---
HEART RATE 59/MIN. SINUS IN RHYTHM.
--- NOTE | 2020-04-28 07:05 | NUR ---
HR 59/MIN, SINUS IN RHYTHM. STILL ON MORPHINE DRIP AT 4MG/HR. ENDORSED TO NURSE CATHY
--- NOTE | 2020-04-28 07:20 | NUR ---
NON RESPONSIVE TO ANY STIMULI, PUPILS FIXED, PATIEN TIS DNR WITH PALLIATIVE CARE, O N MORPHINE DRIPS 4MG/HR FOR COMFORT, BP 63/37, HR 59, RR 13, O2SAT 88% ON O2 3LPM N/C, JOSÉ CATHETER DRAINING SMALL AMNT OF URINE OUTPUT NOTED GUTIERREZ IN COLOR, TUNNELLED CATHETER TO RIGHT CHEST WALL NO S/S OF INFECTION, DRY WOUND TO LEFT CHEST ALYSSA, FLACCID WITH TOTAL CARE, MORPHINE DRIPS TO RFA INFUSING AT 4MG/HR. SIDERAILS UP X2. ON CONTACT/DROPLET ISOLATION FOR PENDING COVID-19 RESULT.
--- NOTE | 2020-04-28 07:30 | NUR ---
UPDATED TO PATIENT'S DAUGHTER KENDRA VIA PHONE.
[2020-04-28 07:52] VITALS: BP 63/37
--- NOTE | 2020-04-28 09:11 | NUR ---
NOTED VIA CLAIMS ADJUDICATOR PATIENT HAS NO PULSE AND SHOWS ASYSTOLE ON THE MONITOR. 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
--- NOTE | 2020-04-28 09:12 | NUR ---
DOCTOR ANA M AT BEDSIDE MADE AWARE THAT PATIENT HAS NO PULSE, PATIENT IS PRONOUNCED BY RAFAEL DREW AT 09:12AM.
--- NOTE | 2020-04-28 09:28 | NUR ---
INFORMED FAMILY VIA PHONE, SPOKE TO PRESLEY AND HER SISTER ANTONIO STATED WILL COME IN SOON.
--- NOTE | 2020-04-28 10:20 | NUR ---
PATIENT'S DAUGHTER PRESLEY AND ANTONIO AT BEDSIDE. MORTUARY PROVIDED BY PATIENT'S DAUGHTER PRESLEY. PER PRESLEY ALL PATIENT'S PERSONAL BELONGINGS BROUGHT HOME BY HER SIS ANTONIO.
--- NOTE | 2020-04-28 11:02 | NUR ---
WRIST [facility]ER NOTIFIED, AWAITING FOR CORNER TO CALL BACK.
--- NOTE | 2020-04-28 11:21 | NUR ---
[facility] NOTIFIED, PATIENT IS NOT CADIDATED CASE# [id number]. SPOKE TO
--- NOTE | 2020-04-28 15:35 | NUR ---
RECEIVED A CALL FROM [facility]ICE. SPOKE WITH CIRCUS ROUSTABOUT PHARMACIST TECHNICIAN NEELA IRWIN INQUIRED ABOUT RESON FOR ADMISION AND CAUSE OF . MADE AWARE PT CAME IN FULL ARREST IN ED AND ARRESTED ONCE MORE IN ICU MADE DNR-PALLATIVE. PER PHARMACIST TECHNICIAN CASE NOT REPORTABLE AT THIS TIME, NO CASE NUMBER WILL BE GIVEN AND BODY IS RELEASED. NOTIFIED ATTENDING NURSE.
--- NOTE | 2020-04-28 15:45 | NUR ---
POST MORTEM CARE PROVIDED.
--- NOTE | 2020-04-28 16:23 | NUR ---
THE BODY PICKED UP BY SECUR[facility] TO [facility] [place] IN ER.
== END 2020-04-28 09:12 | disposition expired | DRG 196 ==
LOC: ED 22:52 → IC 04-26 02:32 → MU 04-26 02:32 → EDBEDREQ 04-26 02:43 → IC 04-26 04:58 → MU 04-27 05:51
PROVIDERS: Emergency Medicine; Internal Medicine; Internal Medicine Cardiovascular Disease; ADMIT Internal Medicine Pulmonary Disease; ATTEND Internal Medicine Pulmonary Disease
PROC: 5A1935Z Respiratory Ventilation, Less than 24 Consecutive Hours (ICD-10-PCS; principal; 2020-04-26)
PROC: 0BH17EZ Insertion of Endotracheal Airway into Trachea, Via Natural or Artificial Opening (ICD-10-PCS; 2020-04-26)
PROC: 30233N1 Transfusion of Nonautologous Red Blood Cells into Peripheral Vein, Percutaneous Approach (ICD-10-PCS; 2020-04-26)
DX: I46.9 Cardiac arrest, cause unspecified (principal); J96.01 Acute respiratory failure with hypoxia; G93.1 Anoxic brain damage, not elsewhere classified; I50.9 Heart failure, unspecified; I42.0 Dilated cardiomyopathy; M32.8 Other forms of systemic lupus erythematosus; N18.6 End stage renal disease; J44.9 Chronic obstructive pulmonary disease, unspecified; I25.10 Atherosclerotic heart disease of native coronary artery without angina pectoris; D64.9 Anemia, unspecified; D63.8 Anemia in other chronic diseases classified elsewhere; Z79.899 Other long term (current) drug therapy
CPT/HCPCS: 31500; 36600; 83880; A4628; G0378; J0282; J1265; J2001; J2270; J2370; J2690; J2704; J3475; J3480; J3535; J7030; J7050; J7060; Q0092; U0003-CS